=== PATIENT | male | born 1930 | race Caucasian/White ===

== ENCOUNTER 2016-06-01 04:06 | Emergency (ER) | payer OTHER ==
[~2016-06-01] VITALS: Ht 182.9 cm; Wt 105.1 kg
[~2016-06-01 04:06] MED LIST: ACTOPLUS MET X1 EAC1 PO; AMLODIPINE PO; ASCORBIC ACID500 M3 PO; AVANDAMET 4 MG PO; BENAZEPRIL PO; BISOPROLOL-HCT1 EAC2 PO; CLONIDINE HCL0.3 MG PO; COLACE100 MG PO; Cardizem CD,Cartia X PO; GLIMEPIRIDE4 MG PO; Glucophage PO; LOTREL 10/21 CAPSULE PO; LOVASTATIN20 MG PO; MVI PO; NORVASC10 MG PO; OYSCO 500+D TA1 EACH PO; ULTRACET1 TABLET PO
[2016-06-01] MEDS ORDERED: AUGMENTIN875 MG PO (05:44)
[2016-06-01 06:10] VITALS: BP 138/71
== END 2016-06-01 06:16 | disposition home or self-care (01) ==
LOC: EME 04:06
PROC: 2Y41X5Z Packing of Nasal Region using Packing Material (ICD-10-PCS; principal; 2016-06-01)
DX: R04.0 Epistaxis (principal); I10 Essential (primary) hypertension; E11.9 Type 2 diabetes mellitus without complications
CPT/HCPCS: 99281; 99285